=== PATIENT | female | born 1980 | race Caucasian/White ===

== ENCOUNTER 2016-06-26 06:24 | Emergency (ER) | payer OTHER ==
[~2016-06-26] VITALS: Ht 165.1 cm; Wt 70.1 kg
[~2016-06-26 06:24] MED LIST: FERR325T51 PO; METO25TA3 PO; MULT-506 PO
[2016-06-26 06:30] VITALS: TEMP 36.9; Ht 165.1 cm; Wt 70.1 kg
--- NOTE | 2016-06-26 07:46 | DIAGNOSTIC IMAGING REPORT ---
CHEST 2 VIEWS ROUTINE CLINICAL HISTORY: Pleuritic chest pain. Left-sided back pain. COMPARISON STUDY: 07/17/2015 FINDINGS: The heart is normal in size. There is no failure. There is no lobar consolidation. Increased density at the lung bases is felt to be secondary to overlying breast tissue attenuation. There are left anterior mediastinal calcifications. This is been described on prior CT scans.[ IMPRESSION: 1. Persistent calcifications within left anterior mediastinum 2. No evidence of acute parenchymal consolidation Electronically signed by: Sachin Call M.D. 06/26/2016 7:44 AM
--- NOTE | 2016-06-26 08:07 | EMERGENCY ROOM VISIT NOTE ---
History Report prepared by Ludmila: Alba Giles Under the Supervision of: Dr. Santiago Hurtado D.O. First contact with patient: 06:51 Chief Complaint: BACK PAIN Stated Complaint: BACK PAIN, HURTS TO BREATHE History of Present Illness The patient is a 35 year old female who presents to the Emergency Room with complaints of persistent pain to her mid upper back after doing repetitive twisting motions on a "[employer]" exercise board 3 nights prior to arrival. Currently, she rates her discomfort as a 6/10, which worsens with attempts at deep breaths. Since the time of onset, the patient has taken several dosages of Tylenol, but it only temporarily helped to relieve her discomfort for a few hours before it returned. Patient did attempt to go about her normal day at work and with chores at home, such as carrying groceries and doing laundry yesterday, but she was awoken with increased pain 4 hours prior to arrival, so she came to the ED for further evaluation. Patient denies experiencing sudden onset of pain while using the exercise board prior to the time of onset, and she has not suffered any other falls or trauma since that time. She also denies pain or symptoms anywhere else about her body. The patient notes that she does have a history of a blood clot in 2003 but she denies recent prolonged travels or surgeries. She denies having chest pain, shortness of breath, or swelling to her extremities. 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 Review of Systems See HPI for pertinent positives & negatives. A total of 10 systems reviewed and were otherwise negative. Past Medical & Surgical Medical Problems: (1) Anxiety (2) DVT (deep venous thrombosis) (3) Hodgkin lymphoma Family History Cancer Diabetes mellitus Gallbladder disease Heart disease Hypertension Lung disease Social History Smoking Status: Never Smoker Marital Status: Housing Status: lives with family Occupation Status: other Current/Historical Medications Scheduled Metoprolol Succ (Toprol Xl) (Toprol-Xl), 6.25 MG PO DAILY Allergies Coded Allergies: No Known Allergies (Verified , 06/26/16) Physical Exam Vital Signs Date Time Temp Pulse Resp B/P Pulse Ox O2 Delivery O2 Flow Rate FiO2 06/26/16 08:18 92 114/66 97 06/26/16 06:30 36.9 110 18 130/77 99 Room Air Physical Exam CONSTITUTIONAL/VITAL SIGNS: Reviewed / noted above. GENERAL: Non-toxic in appearance. INTEGUMENTARY: Warm, dry, and [place]. HEAD: Normocephalic. EYES: without scleral icterus or trauma. ENT/OROPHARYNX: clear and moist. LYMPHADENOPATHY/NECK: Is supple without lymphadenopathy or meningismus. RESPIRATORY: Lungs clear and equal. CARDIOVASCULAR: Regular rate and rhythm. GI/ABDOMEN: Soft and nontender. No organomegaly or pulsatile mass. No rebound or guarding. Normal bowel sounds. EXTREMITIES: Warm and well perfused. BACK: Mild tenderness to palpation of the midthoracic perispinal musculature. No CVA tenderness. NEUROLOGICAL: Intact without focal deficits. PSYCHIATRIC: normal affect. MUSCULOSKELETAL: Normally developed with good muscle tone. Medical Decision & Procedures ER Provider Diagnostic Interpretation: X ray results and stated below per my interpretation and radiology interpretation. CHEST 2 VIEWS ROUTINE CLINICAL HISTORY: Pleuritic chest pain. Left-sided back pain. COMPARISON STUDY: 07/17/2015 FINDINGS: The heart is normal in size. There is no failure. There is no lobar consolidation. Increased density at the lung bases is felt to be secondary to overlying breast tissue attenuation. There are left anterior mediastinal calcifications. This is been described on prior CT scans.[ IMPRESSION: 1. Persistent calcifications within left anterior mediastinum 2. No evidence of acute parenchymal consolidation Electronically signed by: Sachin Call M.D. 06/26/2016 7:44 AM Laboratory Results Test 06/26/16 07:09 Bedside D-Dimer 109 ng/mlFEU (0-450) Laboratory results as stated above per my review. ED Course 0651: Previous medical records were reviewed. The patient was evaluated in room B11. A complete history and physical examination was performed. 0808: Upon reevaluation, the patient was doing well and appeared to be resting more comfortably. I updated her on the results of her radiology reports and lab tests. Discharge instructions were also discussed at this time. She verbalized her understanding and agreement with the treatment plan, and she is now ready for disposition. Medical Decision Differential considered includes cauda equina syndrome, conus medullaris, spinal cord compression syndrome, peripheral nerve compression, fractures or subluxations, intra-abdominal pathology such as abdominal aortic aneurysm or kidney stones, muscle strain, transverse myelitis, spinal cord injury. This is a 35-year-old female who presents to the ED with a chief complaint of back pain. The patient states that she was doing some exercises a few days ago and she developed some back pain. It was a twisting-type exercise. She had the pain on Saturday and it seemed to improve on Saturday. This morning around 3 AM it came back moderately. She was worried about the symptoms and came to the ED for evaluation. She did take some Tylenol this morning. Her symptoms are currently improved and she does not want any additional pain medication. She states that her pain is increased with deep breathing. She has a history of DVT. The patient has no other significant complaints. No fevers or recent illness. No cough. She denies any direct trauma. Chest x-ray did not show any acute disease. D-dimer is negative. Her exam reveals some mild tenderness in the musculature of the back but otherwise no abnormalities were noted. There was no rashes. I suspect her symptoms are musculoskeletal related. She is felt to be stable for discharge and outpatient follow-up. Jdsz-rhy-elpidar medication for pain. Impression Primary Impression: Back pain Scribe Attestation The scribe's documentation has been prepared under my direction and personally reviewed by me in its entirety. I confirm that the note above accurately reflects all work, treatment, procedures, and medical decision making performed by me. Departure Information Dispostion Home / Self-Care Referrals Wilber Merchant M.D. (PCP) Forms HOME CARE DOCUMENTATION FORM, IMPORTANT VISIT INFORMATION Patient Instructions A Signature Page, Back Pain - [facility], My [facility] Additional Instructions The blood tests for blood clots was negative. Your chest x-ray did not show any significant abnormalities. Follow-up with your doctor for further evaluation and care, if symptoms persist beyond one week. Anticipate improvement of symptoms over the next 3-7 days. Take Tylenol or Motrin as needed for pain.
[2016-06-26 08:18] VITALS: BP 114/66; PULSE 92; O2SAT 97
== END 2016-06-26 08:19 | disposition home or self-care (01) ==
LOC: C.EDB 06:25
DX: M54.6 Pain in thoracic spine (principal); Z85.71 Personal history of Hodgkin lymphoma; Z86.718 Personal history of other venous thrombosis and embolism

== ENCOUNTER → 2016-08-17 | Outpatient (CLI) | payer OTHER ==
[~2016-08-17] MED LIST changes: -FERR325T51 PO; -MULT-506 PO
--- NOTE | 2016-08-17 17:18 | DIAGNOSTIC IMAGING REPORT ---
LEFT FOOT MIN 3 VIEWS ROUTINE CLINICAL HISTORY: Acute left foot pain. COMPARISON: None FINDINGS: The tarsometatarsal joints are intact. There is a suspected bipartite sesamoid of the left great toe. No acute fracture is identified. There is mild cortical thickening of the shaft of the left fourth metatarsal. Mild degenerative changes are shown within several articulations of the left foot. IMPRESSION: Mild cortical thickening of the shaft of the left fourth metatarsal. This is probably chronic and of questionable clinical significance however a stress fracture could appear similar. Electronically signed by: Radu Singer M.D. 08/17/2016 5:17 PM Dictated Date/Time: 08/17/2016 5:15 PM
== END | disposition home or self-care (01) ==
LOC: C.RAD1850 16:49
PROVIDERS: ATTEND Internal Medicine
DX: M79.672 Pain in left foot (principal)

== ENCOUNTER → 2016-08-22 | Outpatient (CLI) | payer OTHER ==
--- NOTE | 2016-08-22 12:36 | MAMMOGRAPHY REPORT ---
BILATERAL DIGITAL SCREENING MAMMOGRAM TOMOSYNTHESIS WITH CAD: 08/22/2016 CLINICAL HISTORY: Routine screening. Patient has no complaints. TECHNIQUE: Bilateral breast tomosynthesis in addition to standard 2D mammography was performed. Curr ent study was also evaluated with a Computer Aided Detection (CAD) system. COMPARISON: Comparison is made to exams dated: 03/21/2015 mammogram, 02/03/2013 mammogram, 03/04/2014 mammogram, 01/25/2012 mammogram - [facility], and 12/31/2008. BREAST COMPOSITION: The tissue of both breasts is extremely dense, which lowers the sensitivity of mammography. FINDINGS: The parenchymal pattern is similar to prior exams. There are stable benign-appearing micr o-calcifications in the breasts. No new suspicious mass, architectural distortion or cluster of tanja rocalcifications is seen. IMPRESSION: ACR BI-RADS CATEGORY 1: NEGATIVE 1. Stable bilateral mammograms, without mammographic evidence of malignancy. A 1 year screening mamm ogram is recommended. 2. Given the personal history of prior chest radiation for lymphoma and dense breasts, would also re commend annual screening breast MRI in addition to mammography. The patient will receive written notification of the results. Approximately 10% of breast cancers are not detected with mammography. A negative mammographic repor t should not delay biopsy if a clinically suggestive mass is present. Lindsay Varghese M.D. ay/:08/22/2016 11:06:30 Field Supervisor: Anamaria MORRIS)(Jacinda), [facility] letter sent: Normal 1/2 BI-RADS Code: ACR BI-RADS Category 1: Negative
== END | disposition home or self-care (01) ==
LOC: C.MAMM 08:29
PROVIDERS: ATTEND Nurse Practitioner
DX: Z12.31 Encounter for screening mammogram for malignant neoplasm of breast (principal)

== ENCOUNTER → 2016-08-27 | Outpatient (CLI) | payer OTHER ==
--- NOTE | 2016-08-27 17:26 | DIAGNOSTIC IMAGING REPORT ---
WHOLE-BODY NUCLEAR BONE SCAN; BONE SCAN OF THE FEET CLINICAL HISTORY: Left foot pain. History of Hodgkin's lymphoma. COMPARISON STUDY: CT scan of the chest, abdomen, and pelvis dated 05/28/2014. Radiographs of left foot dated 08/17/2016. TECHNIQUE: Three hours following the IV administration of 26.2 mCi of technetium 99m MDP, whole body nuclear bone scan was performed in the anterior and posterior projections. Additional bone phase images of the feet were obtained in multiple obliquities. FINDINGS: There is no abnormal osseous tracer deposition identified typical in appearance for bony metastatic disease. Typically degenerative uptake is identified in the shoulders, sternoclavicular joints, knees, ankles, and the left first metatarsophalangeal joint. There is expected excreted activity within the renal collecting system and bladder. On the bone phase images of the feet, there is intense abnormal activity localizing to the mid to lateral left mid foot. This is asymmetric to the right. IMPRESSION: 1. There is intense abnormal tracer localization in the left lateral midfoot. When correlated with the radiographs from 08/17/2016 this likely corresponds to the fourth metatarsal. The appearance is nonspecific, but the location and appearance would be typical for a healing stress fracture. Clinical correlation will be essential and continued radiographic follow-up is recommended. 2. No additional foci of abnormal activity are seen. 3. Foci of typically degenerative activity are detailed above. Electronically signed by: Logan Harding M.D. 08/27/2016 5:25 PM Dictated Date/Time: 08/27/2016 5:21 PM
== END | disposition home or self-care (01) ==
LOC: C.NUCL 12:34
PROVIDERS: ATTEND Internal Medicine
DX: M79.672 Pain in left foot (principal); R93.7 Abnormal findings on diagnostic imaging of other parts of musculoskeletal system

== ENCOUNTER → 2017-04-04 | Outpatient (CLI) | payer OTHER | END | disposition home or self-care (01) | LOC: C.LABBFT 13:23 | PROVIDERS: ATTEND Physician Assistant Medical | DX: J02.9 Acute pharyngitis, unspecified (principal) ==

== ENCOUNTER → 2018-02-10 | Outpatient (CLI) | payer OTHER ==
--- NOTE | 2018-02-10 10:13 | DIAGNOSTIC IMAGING REPORT ---
ULTRASOUND OF THE THYROID GLAND CLINICAL HISTORY: History of neck radiation. Hodgkin's lymphoma. COMPARISON STUDY: Chest CT dated 05/28/2014. TECHNIQUE: Real-time, grayscale, and color flow sonography of the thyroid gland is performed utilizing a high-frequency linear transducer. Images are reviewed in the transverse and longitudinal planes. FINDINGS: Right lobe: The right lobe of the thyroid gland is normal in size and homogeneous in echotexture, measuring 5.6 x 1.2 x 1.3 cm. There are 2 subcentimeter honeycomb nodules identified in the right lobe measuring up to 6 mm. Left lobe: The left lobe of the thyroid gland is normal in size and homogeneous in echotexture, measuring 5.6 x 1.3 x 1.5 cm. A complex solid and cystic nodule in the left lower pole measures 2.3 x 2.4 x 2.1 cm. Internal flow is shown on color imaging. Additional subcentimeter honeycomb nodules and colloid cysts measure up to 6 mm. Isthmus: The thyroid isthmus is normal in appearance and measures 0.4 cm in AP diameter. Hypoechoic nodule in the isthmus measures 0.7 x 0.3 x 0.6 cm. IMPRESSION: 1. A dominant solid and cystic nodule in the left lobe measures up to 2.4 cm. Fine-needle aspiration of this nodule is recommended based on size criteria. 2. Additional low suspicion subcentimeter nodules are seen bilaterally. Electronically signed by: Logan Harding M.D. 02/10/2018 10:12 AM Dictated Date/Time: 02/10/2018 10:08 AM
--- NOTE | 2018-02-10 10:18 | DIAGNOSTIC IMAGING REPORT ---
CHEST 2 VIEWS ROUTINE CLINICAL HISTORY: C81.72 HODGKIN'S LYMPHOMA. HISTORY OF RADIATION THERAPY. COMPARISON STUDY: No previous studies for comparison. FINDINGS: Anterior mediastinal calcifications remain unchanged the prior study. The heart is normal in size. There is no hilar adenopathy. There is no focal pulmonary consolidation. There are no pleural effusions. No destructive skeletal lesions are visualized.[ IMPRESSION: No active disease in the chest. Electronically signed by: Sachin Call M.D. 02/10/2018 10:17 AM Dictated Date/Time: 02/10/2018 10:14 AM
== END | disposition home or self-care (01) ==
LOC: C.ULTR 09:37
PROVIDERS: ATTEND Nurse Practitioner Family
DX: C81.72 Other Hodgkin lymphoma, intrathoracic lymph nodes (principal); F41.9 Anxiety disorder, unspecified; Z92.3 Personal history of irradiation; E04.1 Nontoxic single thyroid nodule

== ENCOUNTER → 2018-02-17 | Outpatient (CLI) | payer OTHER ==
--- NOTE | 2018-02-17 11:04 | DIAGNOSTIC IMAGING REPORT ---
ULTRASOUND-GUIDED FINE-NEEDLE ASPIRATION BIOPSY OF THE THYROID LEFT LOBE CLINICAL HISTORY: HX HODGKIN'S LYMPHOMA, thyroid nodule COMPARISON STUDY: 02/10/2018 FINDINGS: A timeout was performed. The risks the procedure were explained the patient informed consent was obtained. The patient was prepped in sterile fashion. The skin was anesthetized 1% lidocaine. Under ultrasound guidance, utilizing a 25-gauge needle, 4 samples were acquired from the patient's dominant left lobe nodule. Initial pathologic review indicates a cellular aspirate with multiple histiocytes. Final pathology is pending at this time. There were no immediate complications. IMPRESSION: Successful ultrasound-guided fine-needle aspiration biopsy of the left lobe of the thyroid. Final pathology is pending at this time. Electronically signed by: Sachin Call M.D. 02/17/2018 11:03 AM Dictated Date/Time: 02/17/2018 11:01 AM
== END | disposition home or self-care (01) ==
LOC: C.ULTR 09:34
PROVIDERS: ATTEND Nurse Practitioner Family
DX: C81.72 Other Hodgkin lymphoma, intrathoracic lymph nodes (principal); E04.1 Nontoxic single thyroid nodule